=== PATIENT | female | born 1970 | race Caucasian/White ===

== ENCOUNTER 2023-10-20 07:00 | Outpatient (CLI) | payer BC ==
--- NOTE | 2023-10-20 14:50 | XRAY Report ---
PROCEDURE: Ankle 3+V LT INDICATIONS: LEFT ANKLE PAIN TECHNIQUE: 3 views of the ankle were acquired. COMPARISON: None. FINDINGS: Bones: No fractures or dislocations. Ankle mortise is normally aligned. No suspicious bony lesions . Soft tissues: No tibiotalar joint effusion. Achilles tendon appears normal. Soft tissue swelling o f the lateral ankle. IMPRESSION: No acute bony abnormality. If pain persists with conservative management, consider repeat x-ray in 10 -14 days or cross-sectional imaging. Reviewed by: Rodolfo Hampton MD on 10/20/2023 2:48 PM PDT Approved by: Rodolfo Hampton MD on 10/20/2023 2:48 PM PDT Station ID: [id number]
== END 2023-10-20 23:59 | disposition home or self-care (01) ==
LOC: DI.S 07:00
PROVIDERS: ATTEND Registered Nurse
DX: M25.572 Pain in left ankle and joints of left foot (principal)